=== PATIENT | male | born 1945 | race Caucasian/White ===

== ENCOUNTER → 2017-02-07 | Outpatient (CLI) | payer BC ==
[~2017-02-07] MED LIST: ESCI10TA17 PO; IBUP-1050 PO; LOSA1TAB PO
--- NOTE | 2017-02-07 10:08 | DIAGNOSTIC IMAGING REPORT ---
LEFT SHOULDER 3 VIEWS HISTORY: LEFT SHOULDER PAIN COMPARISON: None. FINDINGS: There is no fracture or dislocation. Soft tissues are unremarkable. No radiopaque foreign bodies. The left clavicle is intact. Mild AC joint arthrosis. IMPRESSION: No fractures. Mild AC joint arthrosis. Electronically signed by: Wesley Reyes M.D. 02/07/2017 10:06 AM Dictated Date/Time: 02/07/2017 10:05 AM
== END | disposition home or self-care (01) ==
LOC: C.RDSM 09:55
PROVIDERS: ATTEND Physician Assistant
DX: M25.512 Pain in left shoulder (principal)

== ENCOUNTER 2017-08-07 00:06 | Emergency (ER) | payer BC ==
[~2017-08-07] VITALS: Ht 177.8 cm; Wt 98.6 kg
[2017-08-07 00:13] VITALS: Ht 177.8 cm; Wt 98.6 kg
--- NOTE | 2017-08-07 00:25 | EMERGENCY ROOM VISIT NOTE ---
History Report prepared by Kiana: Cailin Yoo Under the Supervision of: Dr. Cinda Lang D.O. First contact with patient: 00:17 Chief Complaint: OTHER COMPLAINT Stated Complaint: RED SORE LUMP IN LEFT ARM PIT History of Present Illness The patient is a 71 year old male who presents to the Emergency Room with complaints of persistent lump on left armpit that he noticed yesterday morning. He states that he has been opening old boxes in preparation of a move. He is unsure if he was bit by a spider or if it is a bite at all. He notes the lump is sore. He has a history of lymph node removal in the past. He denies any infections from ingrown hairs. He denies any change in his deodorant. He states that he showers every other day since he has retired. He has a history of HTN, though it is controlled with Losartan. He denies any blood thinner use. He denies any fevers. He denies any history of MRSA or DM. Source of History: patient Onset: noticed yesterday morning Position: other (left armpit) Quality: other (sore) Timing: other (persistent) Associated Symptoms: No fevers Review of Systems See HPI for pertinent positives & negatives. A total of 10 systems reviewed and were otherwise negative. Past Medical & Surgical Medical Problems: (1) Hemorrhoids (2) Hypertension Family History FHx: cancer Social History Smoking Status: Never Smoker Alcohol Use: occasionally Drug Use: none Marital Status: in relationship Housing Status: lives with significant other Occupation Status: employed Current/Historical Medications Scheduled Cephalexin Monohydrate (Keflex), 500 MG PO QID Escitalopram (Lexapro), 10 MG PO QPM Hctz/Losartan (Hyzaar 25MG/100MG), 1 TAB PO QAM Scheduled PRN Ibuprofen (Advil), 800 MG PO DIRECTED PRN for Pain Allergies Coded Allergies: No Known Allergies (Unverified , 08/07/17) Physical Exam Vital Signs Date Time Temp Pulse Resp B/P (MAP) Pulse Ox O2 Delivery O2 Flow Rate FiO2 08/07/17 02:18 36.9 80 16 135/69 7 08/07/17 00:13 36.9 68 18 176/78 94 Room Air Physical Exam GENERAL: alert, well appearing, well nourished, no distress, non-toxic EYE EXAM: normal conjunctiva, PERRL and EOM's grossly intact OROPHARYNX: no exudate, no erythema, lips, buccal mucosa, and tongue normal and mucous membranes are moist LUNGS: Clear to auscultation. Normal chest wall mechanics HEART: no murmurs, S1 normal and S2 normal ABDOMEN: abdomen soft, non-tender, normo-active bowel sounds, no masses, no rebound or guarding. SKIN: no rashes and no bruising. Left axilla: 2 cm x 1 cm indurated area, no area of central fluctuance, no evidence of streaking lymphangitis, area mildly tender to palpation, no accompanying lymphadenopathy, no UE edema, normal pulses. UPPER EXTREMITIES: upper extremities are grossly normal. LOWER EXTREMITIES: No pitting edema. NEURO EXAM: Normal sensorium, cranial nerves II-XII grossly intact, normal speech, no gross weakness of arms, no gross weakness of legs. Medical Decision & Procedures Laboratory Results Test 08/07/17 02:04 Bedside Glucose 107 mg/dl (70-99) Medications Administered Medications (Trade) Dose Ordered Sig/Robbin Route Start Time Stop Time Status Last Admin Dose Admin Cephalexin Monohydrate (Keflex 500MG Home Pack) 1 homepack NOW ONCE PO 08/07/17 02:00 08/07/17 02:02 DC 08/07/17 02:00 1 HOMEPACK ED Course 0019: The patient was evaluated in room A11B. A complete history and physical exam was performed. 0150: I reassessed the patient at this time. I performed a bedside US of the left axilla. Induration noted. No well defined fluid collection. I discussed the results and treatment plan with the patient. I answered all pertaining questions that he had. He expressed understanding and verbalized agreement. The patient will be discharged home. 0200: Ordered Keflex 500 mg PO and Keflex 1 homepack PO Medical Decision Prior records reviewed and summarized as above. Triage Nursing notes reviewed. The patient's history was concerning for swelling and redness of the skin. Differential diagnosis: Etiologies such as cellulitis, abscess, MRSA infection, DVT, necrotizing fasciitis, dermatitis, drug eruption, as well as others were entertained.. Patient with no history of hydradenitis suppurativa. No prior history of MRSA, not immunocompromised and not a diabetic. Patient states he showers every other day but applies deodorant daily without otherwise removing it at night. Likely this contributed to a blocked follicle or sweat gland contributing to evolving infection. Did not feel area was appropriate for I&D at this time. Discussed use of antibiotics at home and need for close follow-up. Discussed if area worsens I&D may be needed or antibiotics may need to be changed. Blood sugar here at bedside 107. Patient with no fevers and no other systemic symptoms. Did not feel additional labs warranted at this time. No evidence of additional surrounding cellulitis. I do not suspect lymphangitis. Patient well -appearing at time of discharge stable vital signs throughout, agreeable with plan, all questions answered at bedside. Medication Reconcilliation Current Medication List: was personally reviewed by me Blood Pressure Screening Patient's blood pressure: Elevated blood pressure Blood pressure disposition: Elevated BP felt to be situational Impression Primary Impression: Abscess Scribe Attestation The scribe's documentation has been prepared under my direction and personally reviewed by me in its entirety. I confirm that the note above accurately reflects all work, treatment, procedures, and medical decision making performed by me. Departure Information Dispostion Home / Self-Care Prescriptions Cephalexin Monohydrate (Keflex) 500 Mg Cap 500 MG PO QID, #28 CAP Prov: Cinda Lang, DO 08/07/17 Referrals Fly Lopez M.D. (PCP) Forms HOME CARE DOCUMENTATION FORM, IMPORTANT VISIT INFORMATION, WORK / SCHOOL INSTRUCTIONS Patient Instructions My [facility] [employer] Additional Instructions Please shower daily and do not use deodorant in the left armpit. Please take the antibiotics daily as prescribed. Please have your family doctor recheck the area in 2-3 days to assure it is getting better. If the area becomes more painful, more swollen, more red, you develop arm swelling, fevers/chills, nausea /vomiting, dizziness, or you have any other new concerns, please return to the emergency room.
[2017-08-07] MEDS ORDERED: HYZ/10015 PO (00:35)
[2017-08-07] MEDS ORDERED: CEPHALEXIN 500MG HOME PACK 1 EA BTL PO ONE (02:00)
[2017-08-07] MEDS ORDERED: CEPHALEXIN MONOHYDRATE 250 MG CAP PO ONE (02:00)
[2017-08-07] MEDS ORDERED: CEPH500C PO (02:03)
[2017-08-07 02:18] VITALS: BP 135/69; PULSE 80; TEMP 36.9; O2SAT 7
== END 2017-08-07 02:20 | disposition home or self-care (01) ==
LOC: C.EDB 00:07 → C.EDA 02:20
DX: L02.412 Cutaneous abscess of left axilla (principal); I10 Essential (primary) hypertension; Z80.9 Family history of malignant neoplasm, unspecified; Z79.899 Other long term (current) drug therapy

== ENCOUNTER 2018-01-06 13:03 | Emergency (ER) | payer BC ==
[~2018-01-06] VITALS: Ht 177.8 cm; Wt 95.2 kg
[~2018-01-06 13:03] MED LIST changes: +CEPH500C PO; +HYZ/10015 PO; -LOSA1TAB PO
[2018-01-06 13:06] VITALS: TEMP 37.4; Ht 177.8 cm; Wt 95.2 kg
[2018-01-06] MEDS ORDERED: SODIUM CHLORIDE 0.9% 1000ML 1,000 ML IV STA (13:28)
--- NOTE | 2018-01-06 13:41 | DIAGNOSTIC IMAGING REPORT ---
CHEST ONE VIEW PORTABLE CLINICAL HISTORY: Weakness, fatigue COMPARISON STUDY: 03/08/2013 FINDINGS: There is a nonspecific 12 mm opacity at the left lung base, likely representing atelectasis/scarring. Heart is normal in size. There is no failure. There is no lobar consolidation. There are no pleural effusions.[ IMPRESSION: 1. No evidence of lobar consolidation 2. No evidence of failure 3. Nonspecific 12 mm opacity at the left lung base, statistically representing an area of atelectasis/scarring. Electronically signed by: Jamison Savage M.D. 01/06/2018 1:40 PM Dictated Date/Time: 01/06/2018 1:37 PM
[2018-01-06 14:13] VITALS: O2SAT 94
[2018-01-06 14:35] LABS: INR 1.1 (0.9-1.1); PTT PATIENT 31.2 SECONDS (21.0-31.0)
[2018-01-06 14:42] LABS: HEMATOCRIT 48.7 % (42-52); HEMOGLOBIN 17.2 g/dL (14.0-18.0); MEAN CORPUSCULAR HEMOGLOBIN 32.1 pg (25-34); MEAN CORPUSCULAR HGB CONC 35.3 g/dl (32-36); MEAN PLATELET VOLUME 9.7 fL (7.4-10.4); PLATELET COUNT 119 K/uL (130-400); RED CELL DISTRIBUTION WIDTH CV 12.6 % (11.5-14.5); WHITE BLOOD COUNT 6.62 K/uL (4.8-10.8)
[2018-01-06 14:43] LABS: BASO % 0.2 %; BASO ABS # 0.01 K/uL (0-0.2); IG# 0.01 K/uL (0.00-0.02); LYMPH % 6.6 %; LYMPH ABS # 0.44 K/uL (1.2-3.4); MONO % 2.6 %; MONO ABS # 0.17 K/uL (0.11-0.59); NEUT % 90.4 %; NEUT ABS # 5.99 K/uL (1.4-6.5)
[2018-01-06 14:47] LABS: ALBUMIN 3.7 gm/dl (3.4-5.0); ALKALINE PHOSPHATASE 97 U/L (45-117); ALT/SGPT 66 U/L (12-78); AST/SGOT 48 U/L (15-37); BLOOD UREA NITROGEN 24 mg/dl (7-18); CALCIUM 8.1 mg/dl (8.5-10.1); CARBON DIOXIDE 27 mmol/L (21-32); CREATININE 1.23 mg/dl (0.60-1.40); GLUCOSE 124 mg/dl (70-99); LIPASE 144 U/L (73-393); POTASSIUM 3.7 mmol/L (3.5-5.1); SODIUM 130 mmol/L (136-145); TOTAL PROTEIN 7.8 gm/dl (6.4-8.2)
[2018-01-06] MEDS ORDERED: IBUPROFEN 200 MG TAB PO STA (16:24)
[2018-01-06] MEDS ORDERED: DOXY100C76 PO (16:33)
[2018-01-06] MEDS ORDERED: CEFTRIAXONE SOD INJ 1 GM ADDVIAL IV STA (16:56)
--- NOTE | 2018-01-06 17:51 | EMERGENCY ROOM VISIT NOTE ---
History Report prepared by Kiana: Heidy Spencer Under the Supervision of: Dr. Jonathon Farmer M.D. First contact with patient: 13:17 Chief Complaint: NAUSEA Stated Complaint: FATIGUE History of Present Illness The patient is a 72 year old male who presents to the Emergency Room with complaints of waxing and waning fatigue and nausea that onset a few days ago. The patient notes that he was referred to the ED from urgent care. The patient complains of fever, vomiting once, fatigue, a very slight headache, increased urination frequency, and chronic chest pain(that he has had for 20 years). He notes that he does not currently have this chest pain, and the last time he noticed the pain was yesterday and it lasted all day. He notes that he is not currently nauseous. Pt denies LOC, chills, diaphoresis, visual changes, neck pain, breathing difficulties, abdominal pain, back pain, melena, hematochezia, numbness, focal weakness, lymphadenopathy, rash, or other complaints. The patient denies any tick bites or being around sick people. He notes that he had a surgery on his leg and a slightly enlarged prostate. He notes that he had a biopsy done 5 years ago and there was no cancer detected. Source of History: patient Onset: a few days ago Position: abdomen Quality: other (nausea) Timing: waxes/wanes Associated Symptoms: + fevers, + headache, + nausea, + vomiting, + urinary symptoms (increased frequency), + fatigue Review of Systems See HPI for pertinent positives and negatives. A total of ten systems were reviewed and were otherwise negative. Past Medical & Surgical Medical Problems: (1) BPH (benign prostatic hyperplasia) (2) Hemorrhoids (3) Hypertension Family History FHx: cancer Social History Smoking Status: Former Smoker Alcohol Use: occasionally Drug Use: none Marital Status: in relationship Housing Status: lives with significant other Occupation Status: employed Current/Historical Medications Scheduled Doxycycline Monohydrate (Monodox), 100 MG PO BID Escitalopram (Lexapro), 10 MG PO QPM Hctz/Losartan (Hyzaar 25MG/100MG), 1 TAB PO QAM Allergies Coded Allergies: No Known Allergies (Unverified , 01/06/18) Physical Exam Vital Signs Date Time Temp Pulse Resp B/P (MAP) Pulse Ox O2 Delivery O2 Flow Rate FiO2 01/06/18 17:30 75 01/06/18 17:00 79 17 164/91 94 01/06/18 16:41 77 14 175/87 95 Room Air 01/06/18 15:00 71 27 121/67 95 Room Air 01/06/18 14:55 71 19 94 01/06/18 14:15 73 01/06/18 14:13 94 Room Air 01/06/18 14:13 71 17 121/69 95 Room Air 01/06/18 13:06 37.4 83 18 123/76 97 Room Air Physical Exam GENERAL: Awake, alert, well-appearing, in no distress HENT: Normocephalic, atraumatic. Oropharynx unremarkable. EYES: Normal conjunctiva. Sclera non-icteric. NECK: Supple. No nuchal rigidity. FROM. No masses. RESPIRATORY: Clear to auscultation. No wheezes. No rales. Normal respiratory effort. CARDIAC: Normal rate. Normal rhythm. No murmurs. No rubs. Extremities warm and well perfused. Pulses equal. No JVD. GI: Soft, non-distended. No tenderness to palpation. No rebound or guarding. No masses. RECTAL: Deferred. MUSCULOSKELETAL: Atraumatic. Chest examination bilateral CVA tenderness, worse on the left side. The back is symmetrical on inspection without obvious abnormality. There is no CVA tenderness to palpation. No joint edema. LOWER EXTREMITIES: Calves are equal size bilaterally and non-tender. No edema. No discoloration. NEURO: Normal sensorium. No sensory or motor deficits noted. SKIN: No rash or jaundice noted. Medical Decision & Procedures ER Provider Diagnostic Interpretation: Radiology results as stated below per my review and radiologist interpretation: CHEST ONE VIEW PORTABLE CLINICAL HISTORY: Weakness, fatigue COMPARISON STUDY: 03/08/2013 FINDINGS: There is a nonspecific 12 mm opacity at the left lung base, likely representing atelectasis/scarring. Heart is normal in size. There is no failure. There is no lobar consolidation. There are no pleural effusions.[ IMPRESSION: 1. No evidence of lobar consolidation 2. No evidence of failure 3. Nonspecific 12 mm opacity at the left lung base, statistically representing an area of atelectasis/scarring. Electronically signed by: Jamison Savage M.D. 01/06/2018 1:40 PM Dictated Date/Time: 01/06/2018 1:37 PM Laboratory Results 01/06/18 13:28 Red Blood Count 5.35, Mean Corpuscular Volume 91.0, Mean Corpuscular Hemoglobin 32.1, Mean Corpuscular Hemoglobin Concent 35.3, Mean Platelet Volume 9.7, Neutrophils (%) (Auto) 90.4, Lymphocytes (%) (Auto) 6.6, Monocytes (%) (Auto) 2.6, Eosinophils (%) (Auto) 0.0, Basophils (%) (Auto) 0.2, Neutrophils # (Auto) 5.99, Lymphocytes # (Auto) 0.44, Monocytes # (Auto) 0.17, Eosinophils # (Auto) 0.00, Basophils # (Auto) 0.01 01/06/18 13:50 Test 01/06/18 13:28 01/06/18 13:50 01/06/18 15:25 01/06/18 16:36 White Blood Count 6.62 K/uL (4.8-10.8) Red Blood Count 5.35 M/uL (4.7-6.1) Hemoglobin 17.2 g/dL (14.0-18.0) Hematocrit 48.7 % (42-52) Mean Corpuscular Volume 91.0 fL (80-100) Mean Corpuscular Hemoglobin 32.1 pg (25-34) Mean Corpuscular Hemoglobin Concent 35.3 g/dl (32-36) Platelet Count 119 K/uL (130-400) Mean Platelet Volume 9.7 fL (7.4-10.4) Neutrophils (%) (Auto) 90.4 % Lymphocytes (%) (Auto) 6.6 % Monocytes (%) (Auto) 2.6 % Eosinophils (%) (Auto) 0.0 % Basophils (%) (Auto) 0.2 % Neutrophils # (Auto) 5.99 K/uL (1.4-6.5) Lymphocytes # (Auto) 0.44 K/uL (1.2-3.4) Monocytes # (Auto) 0.17 K/uL (0.11-0.59) Eosinophils # (Auto) 0.00 K/uL (0-0.5) Basophils # (Auto) 0.01 K/uL (0-0.2) RDW Standard Deviation 42.0 fL (36.4-46.3) RDW Coefficient of Variation 12.6 % (11.5-14.5) Immature Granulocyte % (Auto) 0.2 % Immature Granulocyte # (Auto) 0.01 K/uL (0.00-0.02) Nucleated RBC Absolute Count (auto) 0.00 K/uL (0-0) Nucleated Red Blood Cells % 0.0 % Prothrombin Time 11.8 SECONDS (9.0-12.0) Prothromb Time International Ratio 1.1 (0.9-1.1) Activated Partial Thromboplast Time 31.2 SECONDS (21.0-31.0) Partial Thromboplastin Ratio 1.2 Anion Gap 9.0 mmol/L (3-11) Est Creatinine Clear Calc Drug Dose 64.7 ml/min Estimated GFR () 68.5 Estimated GFR (Non- 59.1 BUN/Creatinine Ratio 19.4 (10-20) Calcium Level 8.1 mg/dl (8.5-10.1) Magnesium Level 2.2 mg/dl (1.8-2.4) Total Bilirubin 1.1 mg/dl (0.2-1) Direct Bilirubin 0.3 mg/dl (0-0.2) Aspartate Amino Transf (AST/SGOT) 48 U/L (15-37) Alanine Aminotransferase (ALT/SGPT) 66 U/L (12-78) Alkaline Phosphatase 97 U/L (45-117) Troponin I < 0.015 ng/ml (0-0.045) Total Protein 7.8 gm/dl (6.4-8.2) Albumin 3.7 gm/dl (3.4-5.0) Lipase 144 U/L (73-393) Thyroid Stimulating Hormone (TSH) 0.155 uIu/ml (0.300-4.500) Lyme Disease IgG Antibody NEG (NEG) Lyme Disease IgM Antibody NEG (NEG) Urine Color DK YELLOW Urine Appearance CLEAR (CLEAR) Urine pH 5.5 (4.5-7.5) Urine Specific [place] 1.017 (1.000-1.030) Urine Protein TRACE (NEG) Urine Glucose (UA) NEG (NEG) Urine Ketones NEG (NEG) Urine Occult Blood NEG (NEG) Urine Nitrite NEG (NEG) Urine Bilirubin NEG (NEG) Urine Urobilinogen NEG (NEG) Urine Leukocyte Esterase NEG (NEG) Urine WBC (Auto) 0 /hpf (0-5) Urine RBC (Auto) 0-4 /hpf (0-4) Urine Hyaline Casts (Auto) 1-5 /lpf (0-5) Urine Epithelial Cells (Auto) 0-5 /lpf (0-5) Urine Bacteria (Auto) NEG (NEG) Laboratory results reviewed by me Medications Administered Medications (Trade) Dose Ordered Sig/Robbin Route Start Time Stop Time Status Last Admin Dose Admin Sodium Chloride 1,000 ml @ 125 mls/hr Q8H STAT IV 01/06/18 13:28 01/06/18 21:27 01/06/18 14:08 125 MLS/HR Ibuprofen (Advil Tab) 400 mg NOW STAT PO 01/06/18 16:24 01/06/18 16:25 DC 01/06/18 16:44 400 MG Ceftriaxone Sodium (Rocephin Inj) 1 gm NOW STAT IV 01/06/18 16:56 01/06/18 16:57 DC 01/06/18 17:02 1 GM ECG Per My Interpretation Indication: nausea Rate (beats per minute): 76 Rhythm: normal sinus Findings: RBBB, ST elevation, other (Left axis deviation. No ST segment depression.) ED Course 1324: The patient was evaluated in room B11. A complete history and physical exam was performed. 1328: Ordered Sodium Chloride 1,000 ml @ 125 mls/hr IV. 1437: Upon reexamination, the patient was resting comfortably. I discussed the test results and treatment plan with him. The patient will be evaluated for further management. Medical Decision Prior records/ancillary studies reviewed and summarized above. Nursing notes reviewed and agree them. The patient's history was concerning for weakness. Differential diagnosis: Etiologies such as metabolic, infection, hypo/hyperglycemia, electrolyte abnormalities, cardiac sources, intracerebral event, toxicologic, neurologic, as well as others were entertained. Physical examination: As above. ER treatment provided: IV Lock Normal saline hydration Oral ibuprofen IV Rocephin On reassessment the patient felt better. Diagnostics interpretation by me: ECG: No acute ischemia The labs revealed slight thrombocytopenia on CBC. His chemistry panel revealed mild hyponatremia. LFT showed a slight elevation. His Lyme testing was negative. Urinalysis was unremarkable. The patient had a peripheral smear and anaplasmosis testing ordered. Imaging studies: Ultrasound imaging pending. Chest x-ray as above. The patient is doing well at this time. He has some laboratory findings concerning for possible tickborne illness. His TSH is minimally low but has no findings on physical examination or by history to suggest hyperthyroidism. He has a negative urinalysis. The patient has a small area of congestion on his chest x-ray which may be atelectasis. Given his fever and symptoms antibiotic coverage is not unreasonable. Doxycycline will cover the patient unless something abnormal is found on his ultrasound imaging. This is still pending at the time of dictation. His case was signed out to Dr. ceballos at the change of shift pending results of the ultrasound. Hopefully the ultrasound will be negative and he will be able to oral treatment. I did discuss the need for follow-up with his primary physician. Please see Dr. ceballos's note for further details. Medication Reconcilliation Current Medication List: was personally reviewed by me Blood Pressure Screening Patient's blood pressure: Elevated blood pressure Blood pressure disposition: Referred to PCP Impression Primary Impression: Fever Additional Impressions: Generalized weakness Thrombocytopenia Elevated LFTs Scribe Attestation The scribe's documentation has been prepared under my direction and personally reviewed by me in its entirety. I confirm that the note above accurately reflects all work, treatment, procedures, and medical decision making performed by me. Departure Information Prescriptions Doxycycline Monohydrate (Monodox) 100 Mg Cap 100 MG PO BID for 14 Days, #28 CAP Prov: Jonathon Farmer MD 01/06/18 Referrals Fly Lopez M.D. (PCP) Patient Instructions My [facility] Problem Qualifiers
--- NOTE | 2018-01-06 18:20 | DIAGNOSTIC IMAGING REPORT ---
BILIARY ULTRASOUND CLINICAL HISTORY: fatigue, elevated LFTs, vomiting COMPARISON STUDY: No previous studies for comparison. FINDINGS: The pancreas appears normal as visualized. The gallbladder appears sonographically normal. There is no ductal dilatation. There is no right-sided hydronephrosis. The liver is of increased echogenicity, a nonspecific finding most often seen in hepatic steatosis. No focal hepatic masses are visualized. The common bile duct measures 3 mm. IMPRESSION: 1. Increased hepatic echogenicity, a nonspecific finding most often secondary to hepatic steatosis 2. Ultrasonographically normal gallbladder 3. No ductal dilatation Electronically signed by: Jamison Savage M.D. 01/06/2018 6:18 PM Dictated Date/Time: 01/06/2018 6:17 PM
--- NOTE | 2018-01-06 18:31 | EMERGENCY ROOM VISIT NOTE ---
ED Visit Note First contact with patient: 17:52 Patient signed out to me by Dr. Farmer awaiting ultrasound results and repeat evaluation. BILIARY ULTRASOUND CLINICAL HISTORY: fatigue, elevated LFTs, vomiting COMPARISON STUDY: No previous studies for comparison. FINDINGS: The pancreas appears normal as visualized. The gallbladder appears sonographically normal. There is no ductal dilatation. There is no right-sided hydronephrosis. The liver is of increased echogenicity, a nonspecific finding most often seen in hepatic steatosis. No focal hepatic masses are visualized. The common bile duct measures 3 mm. IMPRESSION: 1. Increased hepatic echogenicity, a nonspecific finding most often secondary to hepatic steatosis 2. Ultrasonographically normal gallbladder 3. No ductal dilatation Electronically signed by: Jamison Savage M.D. 01/06/2018 6:18 PM Dictated Date/Time: 01/06/2018 6:17 PM 2044: Patient updated on all results. Discussed with patient plan as outlined by Dr. Farmer, he verbalized understanding was in agreement.
[2018-01-06 18:37] VITALS: BP 127/67
[2018-01-06 18:40] VITALS: PULSE 71; O2SAT 94
== END 2018-01-06 19:07 | disposition home or self-care (01) ==
LOC: C.EDB 13:05
DX: R50.9 Fever, unspecified (principal); R53.1 Weakness; D69.6 Thrombocytopenia, unspecified; R79.89 Other specified abnormal findings of blood chemistry; E87.1 Hypo-osmolality and hyponatremia; I10 Essential (primary) hypertension; Z87.891 Personal history of nicotine dependence